=== PATIENT | female | born 1970 | race Caucasian/White ===

== ENCOUNTER → 2019-02-15 | Outpatient (CLI) | payer OTHER ==
--- NOTE | 2019-02-15 18:18 | ECHO ---
DATE OF PROCEDURE: 02/15/2019 Date of : 1970 Age: 48 Gender: Female Height: 64 inches Weight: 165 pounds Body surface area: 1.8 meters squared Outpatient. REFERRING PHYSICIAN: Rosemarie Bauer Nurse Practitioner INDICATION: Family history of cardiomyopathy. MEASUREMENTS: 2D measurements: RV: 3.5 cm LV: 4.5 cm Septum: 1.0 cm Posterior wall: 1.0 cm Aortic root: 2.8 cm LA: 3.5 cm LVEF: 75% Doppler Measurements: AV: 1.2 meters per second LVOT: 1.1 meters per second LVOT diameter: 2.0 cm MV-E: 68, A: 53, EA ratio: 1.3 Early mitral deceleration time: 239 milliseconds E prime: 7.8, A prime: 9.6, E/E prime ratio: 8.7 PV: 0.8 meters per second Pulmonary artery acceleration time: 144 milliseconds RVSP: 28 mmHg IVC: 1.5 cm COMMENTS: Normal sinus rhythm without intraventricular conduction disturbance. M-mode and two-dimensional echocardiography was performed with pulsed, continuous wave and color flow Doppler studies as well as tissue Doppler. Normal left ventricular size, wall thickness and hyperkinetic wall motion. Normal left atrial size and Doppler assessment of left ventricular (LV) diastolic function and mean left atrial pressure. Normal right heart chamber sizes and motion with normal estimated pulmonary arterial pressure. Normal inferior vena cava (IVC) size and collapse against an elevated central venous pressure. Normal appearing and functioning valvular structures. Normal aortic root size. No intracardiac mass or pericardial effusion.
== END ==
LOC: M CARPUL 08:30
PROVIDERS: ATTEND Registered Nurse Community Health
DX: I10 Essential (primary) hypertension (principal); Z82.49 Family history of ischemic heart disease and other diseases of the circulatory system; F17.210 Nicotine dependence, cigarettes, uncomplicated

== ENCOUNTER 2019-11-11 08:39 | Emergency (ER) | payer OTHER ==
[~2019-11-11] VITALS: Ht 162.6 cm; Wt 78.5 kg
[2019-11-11] MEDS ORDERED: Excedrin (08:50)
[2019-11-11] MEDS ORDERED: TIZA2TA (08:50)
[2019-11-11] MEDS ORDERED: DICL75TA (08:50)
[2019-11-11] MEDS ORDERED: TRAM50TA2 (08:50)
[2019-11-11] MEDS ORDERED: ONDA4TAB6 SL (08:50)
[2019-11-11] MEDS ORDERED: PRED20TA PO (08:50)
[2019-11-11] MEDS ORDERED: EXCETAB33 (08:50)
[2019-11-11] MEDS ORDERED: PERC5TAB12 (08:50)
[2019-11-11] MEDS ORDERED: OXYC1TAB23 (08:50)
[2019-11-11] MEDS ORDERED: NS 1,000 ML IV ONE (09:45)
[2019-11-11] MEDS ORDERED: CYCLOBENZAPRINE 10 MG TAB PO ONE (09:45)
[2019-11-11] MEDS ORDERED: KETOROLAC 30 MG/ML VIAL (J1885) IV ONE (09:45)
[2019-11-11] MEDS ORDERED: ONDANSETRON 4MG/2ML VIAL (J2405) IV ONE (09:45)
[2019-11-11] MEDS ORDERED: METOCLOPRAMIDE INJ 10MG/2ML VIAL (J2765) IV ONE (10:30)
[2019-11-11] MEDS ORDERED: KETO10TAB PO (11:52)
[2019-11-11] MEDS ORDERED: REGL10TA6 PO (11:52)
[2019-11-11 12:16] VITALS: BP 133/82
[2019-11-12] MEDS ORDERED: LISI-542 PO (19:47)
[2019-11-12] MEDS ORDERED: SERT50TA29 PO (19:47)
[2019-11-12] MEDS ORDERED: TOPR25TA PO (19:47)
[2019-11-12] MEDS ORDERED: COQ1200C3 PO (19:47)
[2019-11-12] MEDS ORDERED: REGL10TA6 PO (19:47)
[2019-11-12] MEDS ORDERED: KETO10TAB PO (19:47)
== END 2019-11-11 12:00 | disposition home or self-care (01) ==
LOC: M ED 08:39
DX: R51 Headache (principal); M54.2 Cervicalgia; I10 Essential (primary) hypertension; Z79.899 Other long term (current) drug therapy; F17.210 Nicotine dependence, cigarettes, uncomplicated
CPT/HCPCS: 84702; 96361; 96374; 96375; 99284; J1885; J2405; J2765

== ENCOUNTER 2019-11-12 12:06 | Inpatient (IN) | payer OTHER ==
[~2019-11-12] VITALS: Ht 165.1 cm; Wt 78.6 kg
[~2019-11-12 12:06] MED LIST: DICL75TA; EXCETAB33; Excedrin; KETO10TAB PO; ONDA4TAB6 SL; OXYC1TAB23; PERC5TAB12; PRED20TA PO; REGL10TA6 PO; TIZA2TA; TRAM50TA2
[2019-11-12] MEDS ORDERED: KETOROLAC 30 MG/ML VIAL (J1885) IV ONE (13:15)
[2019-11-12] MEDS ORDERED: diphenhydrAMINE INJ 50MG/ML VIAL (J1200) IV ONE (13:15)
[2019-11-12] MEDS ORDERED: METOCLOPRAMIDE INJ 10MG/2ML VIAL (J2765) IV ONE (13:15)
[2019-11-12 13:43] LABS: BASO % 0.2 % (0.0-1.0); HEMATOCRIT 47.7 % (36.0-47.0); HEMOGLOBIN 15.5 g/dl (12.0-15.5); LYMPH # 0.6 10^3/uL (1.5-5.0); LYMPH % 2.9 % (24.0-44.0); MEAN CORPUSCULAR HEMOGLOBIN 30.9 pg (27.0-33.0); MEAN CORPUSCULAR HGB CONC 32.5 g/dl (32.0-36.5); MONO # 0.3 10^3/uL (0.0-0.8); MONO % 1.7 % (0.0-5.0); NEUTROPHILS # 18.1 10^3/uL (1.5-8.5); NEUTROPHILS % 94.5 % (36.0-66.0); PLATELET COUNT, AUTOMATED 354 10^3/uL (150-450); RED BLOOD COUNT 5.02 10^6/uL (4.00-5.40); WHITE BLOOD COUNT 19.1 10^3/uL (4.0-10.0)
[2019-11-12 14:05] LABS: ALBUMIN 4.1 GM/DL (3.2-5.2); ALT/SGPT 45 U/L (12-78); BILIRUBIN,TOTAL 0.7 MG/DL (0.2-1.0); BLOOD UREA NITROGEN 14 MG/DL (7-18); C REACTIVE PROTEIN QUANTITATIV 0.45 MG/DL (0.00-0.30); CALCIUM LEVEL 9.6 MG/DL (8.5-10.1); CARBON DIOXIDE LEVEL 24 MEQ/L (21-32); CHLORIDE LEVEL 102 MEQ/L (98-107); CREATININE FOR GFR 0.85 MG/DL (0.55-1.30); GLOMERULAR FILTRATION RATE > 60.0 (>58); GLUCOSE, FASTING 116 MG/DL (70-100); POTASSIUM SERUM 4.1 MEQ/L (3.5-5.1); SODIUM LEVEL 135 MEQ/L (136-145); TOTAL PROTEIN 7.7 GM/DL (6.4-8.2)
[2019-11-12 14:14] LABS: ERYTHROCYTE SEDIMENTATION RATE 3 mm/hr (0-20)
[2019-11-12] MEDS ORDERED: MORPHINE 4 MG/ML 1ML VIAL/SYRINGE (J2270) IV ONE (14:30)
[2019-11-12] MEDS ORDERED: NS 1,000 ML IV ONE ×2 (14:30→20:00)
--- NOTE | 2019-11-12 15:06 | REP ---
Head CT without contrast: History: Worsening headache. Comparison study: No comparison study. CT findings: Bone window settings demonstrate an intact bony calvarium. There is no evidence of skull fracture or incidental bony calvarial lesion. The visualized paranasal sinuses appear clear. No intraorbital abnormality is seen. On soft tissue window setting images; the lateral, third, and fourth ventricles are normal in size and position. Hughes-white differentiation pattern is normal above and below the tentorium. There are is no evidence of intracranial hemorrhage. No mass, edema, infarction, or midline shift is seen. No extra-axial fluid collection is appreciated. Impression: Negative noncontrast head CT. Electronically Signed by aSge Rodriguez MD 11/12/2019 06:20 P
--- NOTE | 2019-11-12 15:07 | REP ---
Chest x-ray: Two views. History: Increased white blood cell count. Headache. Findings: There is a dextroconvex mild curvature in the thoracic spine along with degenerative disc changes. The lungs are well inflated and clear. The pleural angles are sharp. Heart size is normal. Pulmonary vasculature is not increased. Impression: No active disease. Electronically Signed by Sage Rodriguez MD 11/12/2019 02:58 P
[2019-11-12 19:08] LABS: APPEARANCE, CSF CLEAR (CLEAR); COLOR, CSF COLORLESS (COLORLESS); CSF TUBE# CELL CNT TUBE 1
[2019-11-12 19:09] LABS: APPEARANCE, CSF CLEAR (CLEAR); COLOR, CSF COLORLESS (COLORLESS); CSF TUBE# CELL CNT TUBE 4
[2019-11-12 19:16] LABS: CSF TUBE# GLU TUBE 2; CSF TUBE# TP TUBE 2; GLUCOSE CSF 48 MG/DL (40-75); TOTAL PROTEIN,CSF 89 MG/DL (15-45)
[2019-11-12] MEDS ORDERED: LISI-542 PO (19:47)
[2019-11-12] MEDS ORDERED: KETO10TAB PO (19:47)
[2019-11-12] MEDS ORDERED: SERT50TA29 PO (19:47)
[2019-11-12] MEDS ORDERED: TOPR25TA PO (19:47)
[2019-11-12] MEDS ORDERED: COQ1200C3 PO (19:47)
[2019-11-12] MEDS ORDERED: REGL10TA6 PO (19:47)
--- NOTE | 2019-11-12 20:28 | HPEPDOC ---
[facility] Medical History & Physical Date of Admission Nov 12, 2019 Date of Service: Nov 12, 2019 Other Provider Candy SERRATO Attending Physician: JUANITA HOLLIDAY MD History and Physical TIME OF SERVICE: 9:22 PM CHIEF COMPLAINT: Headache HISTORY OF PRESENT ILLNESS: This is a 49-year-old female was presented to the ER 4 times over the last 2 weeks with complaints of occipital headache associated with neck pain, blurry vision, light sensitivity, nausea, vomiting, fevers. Result of the nausea and vomiting she had difficulty eating. Per discussion with the ER provider. The p atashu previously received "migraine cocktails" which helped alleviate the pain for only 2 hours. WBC count was 19.1, ESR and CRP were elevated. Because the CT of the head was negative and she had fevers a lumbar puncture was done which revealed more than 600 WBCs, total protein of 89, and glucose of 48; ID was consulted, she was started on acyclovir and Rocephin. 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 REVIEW OF SYSTEMS: 12 point review of systems negative except as listed in HPI PAST MEDICAL/ SURGICAL HISTORY: Status post 2 Status post adenoidectomy SOCIAL HISTORY: She smokes FAMILY HISTORY: She denies any family history of coronary artery disease, diabetes, or lung problems ALLERGIES: Please see below. HOME MEDICATIONS: Please see below. PHYSICAL EXAMINATION: VITAL SIGNS: Please see below. GEN: well-nourished / well developed / complaining of light sensitivity when the lights are turned on in the hospital room HEENT: NCAT / mucus membranes moist and pink CVS: RRR/NMRG LUNGS: lungs are clear to auscultation bilaterally on room air ABDOMEN: Contour (flat) /the abdomen is tympanic on percussion, soft & not tender with palpation MSK/EXTREMITIES: range of motion intact in all 4 extremities NEURO: CN 2-12 are grossly intact / speech is not dysarthric / no nuchal rigidity PSYCH: alert and oriented to person place and time/ able to understand and follow all commands LABORATORY DATA: See below. IMAGING: CT of the head was unremarkable. Chest x-ray was unremarkable MICROBIOLOGY: Please see below. ASSESSMENT: Ms. Mejias is a 49-year-old female who is admitted for sepsis secondary to meningitis. PLAN: 1. 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 SIRS criteria include HR >90 / WBC >12 She has non- diabetic hyperglycemia NEW2S Score = 2 POINTS = Low risk Plan: admit to PCU / telemetry / Sepsis protocol w lactic acid /c/w IV fluids and acyclovir and Rocephin pending blood cultures and final CSF cultures /per D r.Duha f/u HIV consult / Acetaminophen & Toradol PRN for fever & AYALA / target MAP 65 to 70 / f/u Is and Os with target UOP of [place] 0.5 ml/kg/H / target serum glucose 140-180 while acutely ill 2. Chronic hypertension. Plan: Continue metoprolol and lisinopril DVT PROPHYLAXIS: SCDs DISPOSITION: Likely home after more than 2 midnight's stay Vital Signs Vital Signs Date Time Temp Pulse Resp B/P (MAP) Pulse Ox O2 Delivery O2 Flow Rate FiO2 11/12/19 17:38 99.0 11/12/19 17:02 69 17 124/72 (89) 99 11/12/19 15:17 Room Air Laboratory Data Labs 24H Laboratory Tests 2 11/12/19 13:01: Immature Granulocyte % (Auto) 0.7, Neutrophils (%) (Auto) 94.5H, Lymphocytes (%) (Auto) 2.9L, Monocytes (%) (Auto) 1.7, Eosinophils (%) (Auto) 0.0, Basophils (%) (Auto) 0.2, Neutrophils # (Auto) 18.1H, Lymphocytes # (Auto) 0.6L, Monocytes # (Auto) 0.3, Eosinophils # (Auto) 0.0, Basophils # (Auto) 0.0, Nucleated Red Blood Cells % (auto) 0.0, Erythrocyte Sedimentation Rate 3, Anion Gap 9, Gl omerular Filtration Rate > 60.0, Calcium Level 9.6, Total Bilirubin 0.7, Aspartate Amino Transf (AST/SGOT) 19, Alanine Aminotransferase (ALT/SGPT) 45, Alkaline Phosphatase 52, C-Reactive Protein, Quantitative 0.45H, Total Protein 7.7, Albumin 4.1, Albumin/Globulin Ratio 1.14 11/12/19 17:04: Urine Color STRAW, Urine Appearance CLEAR, Urine pH 6.0, Urine Specific [place] 1.006, Urine Protein NEGATIVE, Urine Glucose (UA) NEGATIVE, Urine Ketones TRACEH, Urine Blood 1+H, Urine Nitrite NEGATIVE, Urine Bilirubin NEGATIVE, Urine Urobilinogen 0.2, Urine Leukocyte Esterase NEGATIVE, Urine WBC (Auto) 0, Urine RBC (Auto) 2, Urine Hyaline Casts (Auto) 0, Urine Bacteria (Auto) 1+H, Urine Squamous Epithelial Cells 1, Urine Sperm (Auto) 11/12/19 18:37: CSF Appearance CLEAR, CSF Color COLORLESS, CSF WBC (Auto) 621H, CSF RBC (Auto) < 2, CSF Glucose (Tube 1) TUBE 2, CSF Total Protein (Tube 1) TUBE 2, CSF Cell Count Tube # TUBE 4, CSF Mononuclear Cells % (Auto) 99.5H, CSF Polynuclear WBCs (%) 0.5H, CSF Glucose 48, CSF Total Protein 89H CBC/BMP Laboratory Tests 11/12/19 13:01 Microbiology Microbiology 11/12/19 Blood Culture, Received Pending 11/12/19 Blood Culture, Received Pending 11/12/19 Gram Stain - Preliminary, Resulted 11/12/19 CSF Culture, Resulted Pending 11/12/19 , Received Pending Home Medications Scheduled Lisinopril (Lisinopril) 5 Mg Tablet, 5 MG PO DAILY Metoprolol Succinate (Toprol Xl) 25 Mg Tab.er.24h, 25 MG PO QHS Prednisone (Prednisone) 20 Mg Tablet, 40 MG PO DAILY STARTED 11/08/18 FOR 5 DAYS Sertraline HCl (Sertraline HCl) 50 Mg Tablet, 50 MG PO DAILY Ubidecarenone (Co Q10) 200 Mg Capsule, 200 MG PO DAILY Scheduled PRN Ketorolac Tromethamine (Ketorolac Tromethamine) 10 Mg Tablet, 10 MG PO Q6H PRN for PAIN Metoclopramide HCl (Reglan) 10 Mg Tablet, 10 MG PO Q6H PRN for NAUSEA Ondansetron (Ondansetron Odt) 4 Mg Tab.rapdis, 4 MG SL TID PRN for NAUSEA OR VOMITING Allergies Coded Allergies: No Known Allergies (Unverified , 11/11/19) A-FIB/CHADSVASC A-FIB History Current/History of A-Fib/PAF?: No Current PO Anticoag Therapy: No JUANITA HOLLIDAY MD Nov 12, 2019 20:28
[2019-11-12] MEDS ORDERED: MAALOX 30 ML SUSP *UDC PO PRN (20:30)
[2019-11-12] MEDS ORDERED: MOM 30ML SUSPENSION UDC PO PRN (20:30)
[2019-11-12] MEDS ORDERED: ACYCLOVIR IV ONE (21:00)
[2019-11-12] MEDS ORDERED: NS IV ONE (21:00)
[2019-11-12] MEDS ORDERED: cefTRIAXone SOD 2 GM in D5W MINI-BAG PLUS 50 ML IV ONE (21:00)
[2019-11-12] MEDS: NS 1,000 ML IV SCH (22:26)
[2019-11-12] MEDS: DOCUSATE SODIUM 100 MG CAP PO SCH (22:27)
[2019-11-12 22:30] VITALS: BP 148/74
[2019-11-12 23:59] VITALS: BP 118/74
[2019-11-13] MEDS: METOPROLOL SUCC *XL* 25MG TAB (TopROL *XL*) PO SCH ×2 (01:12→21:00)
[2019-11-13 04:00] VITALS: BP 140/80
[2019-11-13] MEDS: ACETAMINOPHEN TAB 650MG DOSE (2X325MG) PO PRN ×2 (04:25→15:48)
[2019-11-13] MEDS: NS IV SCH ×3 (05:47→20:49)
[2019-11-13] MEDS: ACYCLOVIR IV SCH ×3 (05:47→20:49)
[2019-11-13 05:56] LABS: HEMATOCRIT 40.4 % (36.0-47.0); MEAN CORPUSCULAR HEMOGLOBIN 31.6 pg (27.0-33.0); MEAN CORPUSCULAR HGB CONC 33.4 g/dl (32.0-36.5); MEAN CORPUSCULAR VOLUME 94.6 fl (80.0-96.0); PLATELET COUNT, AUTOMATED 309 10^3/uL (150-450); RED BLOOD COUNT 4.27 10^6/uL (4.00-5.40); WHITE BLOOD COUNT 13.4 10^3/uL (4.0-10.0)
[2019-11-13 05:59] LABS: HEMOGLOBIN 13.5 g/dl (12.0-15.5)
[2019-11-13 06:14] LABS: BLOOD UREA NITROGEN 11 MG/DL (7-18); CALCIUM LEVEL 8.7 MG/DL (8.5-10.1); CARBON DIOXIDE LEVEL 24 MEQ/L (21-32); CHLORIDE LEVEL 108 MEQ/L (98-107); CREATININE FOR GFR 0.79 MG/DL (0.55-1.30); GLOMERULAR FILTRATION RATE > 60.0 (>58); GLUCOSE, FASTING 87 MG/DL (70-100); MAGNESIUM LEVEL 2.1 MG/DL (1.8-2.4); POTASSIUM SERUM 3.8 MEQ/L (3.5-5.1); SODIUM LEVEL 140 MEQ/L (136-145)
[2019-11-13 08:00] VITALS: BP 132/78
[2019-11-13] MEDS: predniSONE 20 MG TAB PO SCH (08:24)
[2019-11-13] MEDS: DOCUSATE SODIUM 100 MG CAP PO SCH ×2 (08:25→20:49)
[2019-11-13] MEDS: SERTRALINE HCL 50 MG TAB PO SCH (08:25)
[2019-11-13] MEDS: lisinopriL 5 MG TAB PO SCH (08:25)
--- NOTE | 2019-11-13 11:02 | IPNPDOC ---
Subjective Date Seen The patient was seen on 11/13/19. Subjective Chief Complaint/HPI headache Constitutional: Reports: Weakness, Fatigue Neurological: Reports: Other Symptoms (headache) Assessment /Plan Assessment 1. sepsis secondary to meningitis - likely HSV. - started on acyclovir/rocephin in ED, continued on acyclovir. - ID Dr. Ryan to see. - blood/CSF cultures pending. - tylenol/toradol for pain/fever, continue IVF. 2. hypertension - continue metoprolol, lisinopril. 3. DVT ppx - SCD's. Plan/VTE VTE Prophylaxis Ordered?: Yes VS, I&O, 24H, Fishbone Vital Signs/I&O Vital Signs Date Time Temp Pulse Resp B/P (MAP) Pulse Ox O2 Delivery O2 Flow Rate FiO2 11/13/19 08:25 132/78 11/13/19 08:00 97.5 71 16 99 Room Air I&O- Last 24 Hours up to 6 AM 11/13/19 06:00 Intake Total 2440 ml Output Total 400 ml Balance 2040 ml Laboratory Data 24H LABS Laboratory Tests 2 11/12/19 13:01: Immature Granulocyte % (Auto) 0.7, Neutrophils (%) (Auto) 94.5H, Lymphocytes (%) (Auto) 2.9L, Monocytes (%) (Auto) 1.7, Eosinophils (%) (Auto) 0.0, Basophils (%) (Auto) 0.2, Neutrophils # (Auto) 18.1H, Lymphocytes # (Auto) 0.6L, Monocytes # (Auto) 0.3, Eosinophils # (Auto) 0.0, Basophils # (Auto) 0.0, Nucleated Red Blood Cells % (auto) 0.0, Erythrocyte Sedimentation Rate 3, Anion Gap 9, Glomerular Filtration Rate > 60.0, Calcium Level 9.6, Total Bilirubin 0.7, Aspa rtate Amino Transf (AST/SGOT) 19, Alanine Aminotransferase (ALT/SGPT) 45, Alkaline Phosphatase 52, C-Reactive Protein, Quantitative 0.45H, Total Protein 7.7, Albumin 4.1, Albumin/Globulin Ratio 1.14 11/12/19 17:04: Urine Color STRAW, Urine Appearance CLEAR, Urine pH 6.0, Urine Specific [place] 1.006, Urine Protein NEGATIVE, Urine Glucose (UA) NEGATIVE, Urine Ketones TRACEH, Urine Blood 1+H, Urine Nitrite NEGATIVE, Urine Bilirubin NEGATIVE, Urine Urobilinogen 0.2, Urine Leukocyte Esterase NEGATIVE, Urine WBC (Auto) 0, Urine RBC (Auto) 2, Urine Hyaline Casts (Auto) 0, Urine Bacteria (Auto) 1+H, Urine Squamous Epithelial Cells 1, Urine Sperm (Auto) 11/12/19 18:37: CSF Appearance CLEAR, CSF Color COLORLESS, CSF WBC (Auto) 621H, CSF RBC (Auto) < 2, CSF Glucose (Tube 1) TUBE 2, CSF Total Protein (Tube 1) TUBE 2, CSF Cell Count Tube # TUBE 4, CSF Mononuclear Cells % (Auto) 99.5H, CSF Polynuclear WBCs (%) 0.5H, CSF Glucose 48, CSF Total Protein 89H 11/13/19 05:35: Nucleated Red Blood Cells % (auto) 0.0, Anion Gap 8, Glomerular Filtration Rate > 60.0, Calcium Level 8.7, Lactic Acid Level 1.7, Magnesium Level 2.1, HIV Antigen/Antibody Combo Qual NEGATIVE CBC/BMP Laboratory Tests 11/12/19 13:01 11/13/19 05:35 Microbiology Microbiology 11/12/19 Blood Culture, Received Pending 11/12/19 Blood Culture, Received Pending 11/12/19 Gram Stain - Final, Resulted 11/12/19 CSF Culture, Resulted Pending 11/12/19 - Final, Complete Herpes Simplex Virus 2 SAVANNAH HAGER MD Nov 13, 2019 11:02
[2019-11-13 12:00] VITALS: BP 130/76
[2019-11-13] MEDS: KETOROLAC TROMETHAMINE 10 MG TAB PO PRN (13:28)
[2019-11-13] MEDS: NS 1,000 ML IV SCH (13:28)
[2019-11-13 16:00] VITALS: BP 139/70
[2019-11-13 20:00] VITALS: BP 120/70
[2019-11-13] MEDS ORDERED: cefTRIAXone SOD 1 GM in D5W MINI-BAG PLUS 50 ML IV SCH (22:00)
[2019-11-13 23:59] VITALS: BP 118/80
[2019-11-14 04:00] VITALS: BP 140/74
[2019-11-14] MEDS: NS IV SCH ×3 (04:49→21:48)
[2019-11-14] MEDS: ACYCLOVIR IV SCH ×3 (04:49→21:48)
[2019-11-14 05:50] LABS: HEMATOCRIT 40.3 % (36.0-47.0); HEMOGLOBIN 13.5 g/dl (12.0-15.5); MEAN CORPUSCULAR HEMOGLOBIN 31.7 pg (27.0-33.0); MEAN CORPUSCULAR HGB CONC 33.5 g/dl (32.0-36.5); MEAN CORPUSCULAR VOLUME 94.6 fl (80.0-96.0); PLATELET COUNT, AUTOMATED 288 10^3/uL (150-450); RED BLOOD COUNT 4.26 10^6/uL (4.00-5.40); WHITE BLOOD COUNT 11.3 10^3/uL (4.0-10.0)
[2019-11-14 06:08] LABS: BLOOD UREA NITROGEN 10 MG/DL (7-18); CALCIUM LEVEL 8.3 MG/DL (8.5-10.1); CARBON DIOXIDE LEVEL 27 MEQ/L (21-32); CHLORIDE LEVEL 107 MEQ/L (98-107); CREATININE FOR GFR 0.69 MG/DL (0.55-1.30); GLOMERULAR FILTRATION RATE > 60.0 (>58); GLUCOSE, FASTING 85 MG/DL (70-100); POTASSIUM SERUM 3.4 MEQ/L (3.5-5.1); SODIUM LEVEL 140 MEQ/L (136-145)
[2019-11-14] MEDS ORDERED: KCL 10MEQ/100ML SWI (KRUN) 10 MEQ in IV 1 EA IV ONE (07:45)
[2019-11-14 08:00] VITALS: BP 162/88
[2019-11-14] MEDS: SERTRALINE HCL 50 MG TAB PO SCH (08:30)
[2019-11-14] MEDS: DOCUSATE SODIUM 100 MG CAP PO SCH ×2 (08:30→21:51)
[2019-11-14] MEDS: predniSONE 20 MG TAB PO SCH (08:30)
[2019-11-14] MEDS: lisinopriL 5 MG TAB PO SCH (08:31)
[2019-11-14] MEDS: KCL 10MEQ/100ML SWI (KRUN) 10 MEQ in IV 1 EA IV SCH ×2 (08:31→10:56)
[2019-11-14] MEDS: NS 1,000 ML IV SCH ×2 (08:32→21:57)
--- NOTE | 2019-11-14 10:04 | IPNPDOC ---
Subjective Date Seen The patient was seen on 11/14/19. Subjective Chief Complaint/HPI Seen and examined at bedside, c/o occasional blurry vision, denies n/v, headaches, dizziness. Assessment /Plan Assessment 1. viral meningitis - secondary to HSV, CSF gram stain/culture negative, blood cultures negative. - on acyclovir. - ID Dr. Ryan to see. - tylenol/toradol for pain/fever, continue IVF. 2. hypertension - continue metoprolol, lisinopril. 3. DVT ppx - SCD's. Plan/VTE VTE Prophylaxis Ordered?: Yes VS, I&O, 24H, Fishbone Vital Signs/I&O Vital Signs Date Time Temp Pulse Resp B/P (MAP) Pulse Ox O2 Delivery O2 Flow Rate FiO2 11/14/19 08:31 162/80 11/14/19 08:00 98.3 73 16 99 Room Air I&O- Last 24 Hours up to 6 AM 11/14/19 06:00 Intake Total 2836 ml Output Total 850 ml Balance 1986 ml Laboratory Data 24H LABS Laboratory Tests 2 11/14/19 05:16: Nucleated Red Blood Cells % (auto) 0.0, Anion Gap 6L, Glomerular Filtration Rate > 60.0, Calcium Level 8.3L CBC/BMP Laboratory Tests 11/14/19 05:16 Microbiology Microbiology 11/12/19 Blood Culture - Preliminary, Resulted No growth after 24 hours . All specim... 11/12/19 Blood Culture - Preliminary, Resulted No growth after 24 hours . All specim... 11/12/19 Gram Stain - Final, Complete 11/12/19 CSF Culture - Final, Complete 11/12/19 - Final, Complete Herpes Simplex Virus 2 SAVANNAH HAGER MD Nov 14, 2019 10:04
[2019-11-14 12:00] VITALS: BP 126/78
[2019-11-14 16:00] VITALS: BP 146/78
--- NOTE | 2019-11-14 17:58 | CR ---
DATE OF INFECTIOUS DISEASE CONSULTATION: 11/14/2019 REFERRING PHYSICIAN: Hospitalist service. 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 HISTORY OF PRESENT ILLNESS: Mrs. Mejias is a 49-year-old female who had been sick since October 28 with a headache and neck pain. She was seen four times in the emergency room, initially was diagnosed with shoulder pain and arthritis and eventually had a lumbar puncture done at [facility] on 11/12/19 and was found to have a cerebrospinal fluid (CSF) pleocytosis with lymphocyte predominance and HSV II positive PCR by [employer]. Patient was started on IV acyclovir and has received so far five doses with marked improvement of her symptoms. Headache has resolved tonight and nausea/ vomiting have resolved. She had low grade fever at home with a T-max of 100.8 at [facility]. She feels better and would like to go home tomorrow. PAST MEDICAL HISTORY: Significant for essential hypertension and a history of depression. There is no previous history of herpes 1 or 2. SOCIAL HISTORY She smokes, works at [employer]. She was . She has three kids and the youngest is 7 years old. Her fiance has four kids. They have been together for 2 years and the fiance who is present in the room states he has never had herpes either. ALLERGIES NO KNOWN DRUG ALLERGIES. MEDICATIONS - lisinopril 5 mg daily - metoprolol 25 mg by mouth at bedtime - prednisone 20 mg daily, was started on 11/08 for 5 days for neck pain - sertraline 50 mg by mouth daily - Co Q10 200 mg by mouth daily - acyclovir 800 mg IV every 8 hours - milk of magnesia as needed - ketorolac as needed LABORATORY DATA White count on admission was 19.1; today was 11.3, hemoglobin 13.5, hematocrit 288, sodium 140, potassium 3.4, chloride 107, bicarb 27, BUN 10, creatinine 0.69, glucose 85, calcium 8.3, CRP 0.45. Urinalysis: Zero white cells, two red cells, +1 bacteria. HIV negative. Lumbar puncture had 644 white cells, 99% lymphocytes, 1% monocytes, total protein was 89 and glucose was 48. CSF [employer] was positive for HSV II. Blood cultures was negative. CSF culture was negative. IMAGING STUDIES Chest x-ray showed no acute disease, two views. Head CT was negative without contrast. PHYSICAL EXAMINATION: She is a healthy looking female, in no acute distress sitting comfortably in bed smiling. Heart: Normal S1, S2. No murmurs, rubs or gallops. Lungs are clear. No wheezes, rales or rhonchi. Abdomen: Soft, nontender. No hepatosplenomegaly. Back: No CVA or lumbosacral tenderness. Neck: No stiffness. Normal range of motion.no adenopathy no sinus tenderness Oropharynx is clear with no lesions. Neurologic: Exam normal.motor strength symmetrical Negative Kernig and Brudzinski. Skin: No rashes. Tattoo between the scapula and along her left arm. Left arm multiple tattoos. 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 The patient has been with her current significant other for the past 2 years and been before. HIV test was negative. This is most likely reactivation of previous exposure to HSV II although she has no known history PLAN: Continue with IV acyclovir tonight then patient could be discharged home tomorrow on Valtrex 1 gram by mouth three times a day for one week. I recommended that her significant other gets tested with serology for HSV to see if he also is positive. If they are serodiscordant couples she may consider using chronic suppressive therapy Recommend HIV test which was negative. Suggest discontinuing prednisone. Patient to Follow up in my office 7-10 days after discharge Thank you for consultation. CATY
[2019-11-14 20:00] VITALS: BP 127/73
[2019-11-14] MEDS: METOPROLOL SUCC *XL* 25MG TAB (TopROL *XL*) PO SCH (21:52)
[2019-11-14] MEDS: KETOROLAC TROMETHAMINE 10 MG TAB PO PRN (21:56)
[2019-11-15] VITALS: BP 136/62
[2019-11-15 04:00] VITALS: BP 139/89
[2019-11-15] MEDS: NS IV SCH (05:37)
[2019-11-15] MEDS: ACYCLOVIR IV SCH (05:37)
[2019-11-15 05:55] LABS: HEMOGLOBIN 13.5 g/dl (12.0-15.5); MEAN CORPUSCULAR HEMOGLOBIN 31.3 pg (27.0-33.0); MEAN CORPUSCULAR HGB CONC 32.9 g/dl (32.0-36.5); MEAN CORPUSCULAR VOLUME 94.9 fl (80.0-96.0); PLATELET COUNT, AUTOMATED 285 10^3/uL (150-450); RED BLOOD COUNT 4.32 10^6/uL (4.00-5.40); WHITE BLOOD COUNT 12.3 10^3/uL (4.0-10.0)
[2019-11-15 06:13] LABS: BLOOD UREA NITROGEN 8 MG/DL (7-18); CALCIUM LEVEL 8.2 MG/DL (8.5-10.1); CARBON DIOXIDE LEVEL 26 MEQ/L (21-32); CHLORIDE LEVEL 109 MEQ/L (98-107); CREATININE FOR GFR 0.68 MG/DL (0.55-1.30); GLOMERULAR FILTRATION RATE > 60.0 (>58); GLUCOSE, FASTING 84 MG/DL (70-100); POTASSIUM SERUM 3.5 MEQ/L (3.5-5.1); SODIUM LEVEL 141 MEQ/L (136-145)
[2019-11-15 08:00] VITALS: BP_SYST 137; BP_SYST 230; BP_DIAS 78; BP_DIAS 80
[2019-11-15] MEDS: DOCUSATE SODIUM 100 MG CAP PO SCH (09:00)
[2019-11-15 09:56] VITALS: BP 137/78
[2019-11-15] MEDS: SERTRALINE HCL 50 MG TAB PO SCH (09:56)
[2019-11-15] MEDS: lisinopriL 5 MG TAB PO SCH (09:56)
[2019-11-15] MEDS ORDERED: VALT1TAB PO (10:04)
--- NOTE | 2019-11-15 10:14 | DS.PDOC ---
Discharge Summary General Date of Admission Nov 12, 2019 at 20:21 Date of Discharge 11/15/19 Primary Care Physician: Chas Attending Physician: SAVANNAH HAGER MD Discharge Summary PROCEDURES PERFORMED DURING STAY: Lumbar puncture ADMITTING DIAGNOSES: 1. HSV meningitis DISCHARGE DIAGNOSES: 1. HSV meningitis COMPLICATIONS/CHIEF COMPLAINT: headache HISTORY OF PRESENT ILLNESS: 49-year-old female was presented to the ER 4 times over the last 2 weeks with complaints of occipital headache associated with neck pain, blurry vision, light sensitivity, nausea, vomiting, fevers. Result of the nausea and vomiting she had difficulty eating. Per discussion with the ER provider. The patient previously received "migraine cocktails" which helped alleviate the pain for only 2 hours. WBC count was 19.1, ESR and CRP were elevated. Because the CT of the head was negative and she had fevers a lumbar puncture was done which revealed more than 600 WBCs, total protein of 89, and glucose of 48; ID was consulted, she was started on acyclovir and Rocephin. 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 HOSPITAL COURSE: Patient was admitted and treated for the following conditions: 1. HSV meningitis - CSF PCR positive for HSV2. - blood cultures negative. - started on IV acyclovir. - seen by ID Dr. Ryan. - patient stable and cleared for discharge today, to start Valtrex 1gm TID x 7 days. - outpatient follow up with Dr. Ryan in 1 week. - boyfriend advised to get tested with serology for HSV. 2. hypertension - continue metoprolol, lisinopril. - outpatient follow up. DISCHARGE MEDICATIONS: Please see below. ALLERGIES: Please see below. PHYSICAL EXAMINATION ON DISCHARGE: VITAL SIGNS: Please see below. GENERAL: awake, NAD, elderly female HEENT: NCAT, anicteric sclera, PERRLA NECK: supple, no JVD, no thyromegaly CARDIOVASCULAR EXAMINATION: NS1S2, regular, no murmurs, rubs RESPIRATORY EXAMINATION: decreased breath sounds b/l, no wheezes, rales, rhonchi ABDOMINAL EXAMINATION: NT/ND, positive bowel sounds x 4 EXTREMITIES: no cyanosis, clubbing, edema SKIN: warm, no rashes NEUROLOGICAL EXAMINATION: AAO x 3, motor 5/5, sensory grossly intact PSYCHIATRIC EXAMINATION: calm, cooperative, normal mood/affect LABORATORY DATA: Please see below. IMAGING: CT head 11/12/19: CT findings: Bone window settings demonstrate an intact bony calvarium. There is no evidence of skull fracture or incidental bony calvarial lesion. The visualized paranasal sinuses appear clear. No intraorbital abnormality is seen. On soft tissue window setting images; the lateral, third, and fourth ventricles are normal in size and position. Hughes-white differentiation pattern is normal above and below the tentorium. There are is no evidence of intracranial hemorrhage. No mass, edema, infarction, or midline shift is seen. No extra-axial fluid collection is appreciated. ACTIVITY: As tolerated DIET: regular DISPOSITION: home DISCHARGE INSTRUCTIONS: 1. please follow up with Dr. Ryan in 1 week 2. please follow up with your PCP in 1 week DISCHARGE CONDITION: stable TIME SPENT ON DISCHARGE: Greater than 30 minutes. Vital Signs/I&Os Vital Signs Date Time Temp Pulse Resp B/P (MAP) Pulse Ox O2 Delivery O2 Flow Rate FiO2 11/15/19 09:56 137/78 11/15/19 08:00 97.6 67 16 97 Room Air I&O- Last 24 Hours up to 6 AM 11/15/19 06:00 Intake Total 2026 ml Output Total 50 ml Balance 1976 ml Laboratory Data Labs 24H Laboratory Tests 2 11/15/19 05:30: Nucleated Red Blood Cells % (auto) 0.0, Anion Gap 6L, Glomerular Filtration Rate > 60.0, Calcium Level 8.2L CBC/BMP Laboratory Tests 11/15/19 05:30 Microbiology Microbiology 11/12/19 Blood Culture - Preliminary, Resulted No Growth after 48 hours. All Specime... 11/12/19 Blood Culture - Preliminary, Resulted No Growth after 48 hours. All Specime... 11/12/19 Gram Stain - Final, Complete 11/12/19 CSF Culture - Final, Complete 11/12/19 - Final, Complete Herpes Simplex Virus 2 Discharge Medications Scheduled Lisinopril (Lisinopril) 5 Mg Tablet, 5 MG PO DAILY, (Reported) Metoprolol Succinate (Toprol Xl) 25 Mg Tab.er.24h, 25 MG PO QHS, (Reported) Sertraline HCl (Sertraline HCl) 50 Mg Tablet, 50 MG PO DAILY, (Reported) Ubidecarenone (Co Q10) 200 Mg Capsule, 200 MG PO DAILY, (Reported) Valacyclovir HCl (Valtrex) 1,000 Mg Tablet, 1 TAB PO TID Take 1 TAB by mouth three times daily for 7 days Scheduled PRN Ketorolac Tromethamine (Ketorolac Tromethamine) 10 Mg Tablet, 10 MG PO Q6H PRN for PAIN, (Reported) Allergies Coded Allergies: No Known Allergies (Unverified , 11/11/19) SAVANNAH HAGER MD Nov 15, 2019 10:08
[2019-11-15] MEDS: ACETAMINOPHEN TAB 650MG DOSE (2X325MG) PO PRN (11:35)
--- NOTE | 2019-11-15 18:18 | IPN ---
DATE: 11/15/2019 Yoli is doing great today. Her only complaint is blurry vision that she is concerned about. Her headache, nausea, vomiting, and abdominal pain have resolved. She denies any headache or neck stiffness. She is feeling well and wants to go home. Temperature is 97.6, pulse 67, respirations 16, blood pressure 137/78, oxygen saturation 97% on room air. HEART: Normal S1, S2. No murmurs, rubs or gallops. Lungs are clear. No wheezes, rales, or rhonchi. ABDOMEN: Soft, nontender. No hepatosplenomegaly. EXTREMITIES: No edema. Neck is supple. No stiffness. Negative Brudzinski sign. IMPRESSION: 1. Herpes simplex, meningitis type 2, on IV acyclovir. The patient has dramatically improved after seven doses. The patient could be discharged home with oral Valtrex 1 gram by mouth three times a day for seven days. 2. Essential hypertension, controlled. PLAN: Suggest discontinuing prednisone. I am not sure what the indication was for the use of prednisone but I would not recommend that. Followup in my office in 7-10 days. LABORATORY DATA: HIV negative. White count 12.3 most likely related to prednisone use, hemoglobin 13.5, hematocrit 41, platelets 285. Sodium 141, potassium 3.5, chloride 109, bicarbonate 26, BUN 8, creatinine 0.68, glucose 84, calcium 8.2.
== END 2019-11-15 12:25 | disposition home or self-care (01) | DRG 871 ==
LOC: M ED 12:06 → M ED INP 20:21 → ENRESERV 21:12 → M PCU 22:13
PROVIDERS: ADMIT Internal Medicine; ATTEND Internal Medicine
PROC: 009U3ZX Drainage of Spinal Canal, Percutaneous Approach, Diagnostic (ICD-10-PCS; principal; 2019-11-14)
DX: A41.9 Sepsis, unspecified organism (principal); B00.3 Herpesviral meningitis; I10 Essential (primary) hypertension; F17.210 Nicotine dependence, cigarettes, uncomplicated; Z79.899 Other long term (current) drug therapy

== ENCOUNTER → 2022-01-03 | Outpatient (REF) | payer MEDICARE, OTHER ==
[~2022-01-03] MED LIST changes: +COQ1200C3 PO; +LISI5TAB11 PO; +SERT50TA29 PO; +TOPR25TA PO; +VALT1TAB PO
== END ==
LOC: M LAB REF 16:12
PROVIDERS: ATTEND Ophthalmology
DX: H02.831 Dermatochalasis of right upper eyelid (principal); H02.834 Dermatochalasis of left upper eyelid